=== PATIENT | female | born 1975 | race American Indian/Alaskan Native ===

== ENCOUNTER → 2019-04-16 | Emergency (ER) | payer SELFPAY ==
[~2019-04-16] MED LIST: ACETAMINOPHEN 325 MG TAB PO PRN; ALBUTEROL 2.5 MG/3 ML NEBU IH PRN; CALCIUM CHLORIDE 1,000 MG/10 ML SYRINGE IV ONE; CEFEPIME/NS 2 GM/100 ML 2 GM/100 ML BAG IV SCH; EPINEPHrine 1:10,000 1 MG/10 ML SYRINGE ONE; FUROSEMIDE 40 MG/4 ML INJ IV SCH; HEPARIN 5,000 UNIT/1 ML VIAL SUB-Q SCH; HYDROmorphone 1 MG/1 ML INJ IV PRN; IPRATROPIUM/ALBUTEROL SULFATE 3 ML AMPUL.NEB IH PRN; IPRATROPIUM/ALBUTEROL SULFATE 3 ML AMPUL.NEB IH SCH; LIP THERAPY VASELINE TP PRN; LORazepam 2 MG/ML VIAL IV ONE; MINERAL OIL/PETROLATUM, WHITE OPHTH OINT 3.5 GM OU PRN; MORPHINE 2 MG/1 ML INJ IV PRN; ONDANSETRON 4 MG/2 ML INJ IV PRN; POTASSIUM CHLORIDE ER 20 MEQ TAB PO SCH; SODIUM BICARB 8.4% 50 MEQ/50 ML SYRINGE IV ONE; VANCOMYCIN 1,000 MG in SODIUM CHLORIDE 0.9% 500 ML 500 ML IV ONE; VANCOMYCIN 1,500 MG in SODIUM CHLORIDE 0.9% 500 ML 500 ML IV SCH; VANCOMYCIN 2,000 MG in SODIUM CHLORIDE 0.9% 500 ML 500 ML IV ONE; VANCOMYCIN PHARMACY TO DOSE IV SCH; carvediloL 6.25 MG TAB PO SCH; hydrALAZINE 25 MG TAB PO SCH
--- NOTE | 2019-04-16 16:30 | Emergency Department Report ---
ED Shortness of Breath HPI - General Stated Complaint: CARDIAC ARREST Time Seen by Provider: 04/16/19 15:14 Source: EMS Limitations: Other (unresponsive patient) - History of Present Illness Initial Comments: Mrs. Wynne is a 43 yo female with hx of CHF, HTN and DM who presents to ED in cardiac arrest. EMS was called for severe shortness of breath. She was found in her car at work. While en route, Patient went into cardiac arrest with PEA. EMS intubated the patient in the ambulance. Epinephrine given down ETT. Patient did not have a pulse on arrival. Chest compressions were performed during transport to treatment room. MD Complaint: shortness of breath -: Sudden, This afternoon Severity: severe Improves With: other (unknown) Worsens With: other (unknown) Known History Of: congestive heart failure Context: other (unknown) Associated Symptoms: other (unknown) - Related Data Home Medications Medication Instructions Recorded Confirmed Last Taken Aspirin EC [Halfprin EC] 81 mg PO QDAY 04/16/19 04/16/19 Unknown Furosemide [Lasix TAB] 40 mg PO QDAY 04/16/19 04/16/19 Unknown ISOSORBIDE MONOnitrate [Imdur ER] 30 mg PO DAILY 04/16/19 04/16/19 Unknown carvediloL [Coreg] 6.25 mg PO BID 04/16/19 04/16/19 Unknown hydrALAZINE [Apresoline] 50 mg PO BID 04/16/19 04/16/19 Unknown Allergies Allergy/AdvReac Type Severity Reaction Status Date / Time No Known Allergies Allergy Unverified 04/16/19 17:37 ED Review of Systems ROS: Stated complaint: CARDIAC ARREST Other details as noted in HPI Comment: Unobtainable due to pts medical conditions (patient is unresponsive) ED Past Medical Hx - Past Medical History Previous Medical History?: Yes Hx Hypertension: Yes Hx Congestive Heart Failure: Yes Hx Diabetes: Yes - Surgical History Additional Surgical History: unable to obtain - Family History Family history: other (unknown) - Social History Smoking Status: Current Every Day Smoker Substance Use Type: Other (unknown) - Medications Home Medications: Home Medications Medication Instructions Recorded Confirmed Last Taken Type Aspirin EC [Halfprin EC] 81 mg PO QDAY 04/16/19 04/16/19 Unknown History Furosemide [Lasix TAB] 40 mg PO QDAY 04/16/19 04/16/19 Unknown History ISOSORBIDE MONOnitrate [Imdur ER] 30 mg PO DAILY 04/16/19 04/16/19 Unknown History carvediloL [Coreg] 6.25 mg PO BID 04/16/19 04/16/19 Unknown History hydrALAZINE [Apresoline] 50 mg PO BID 04/16/19 04/16/19 Unknown History ED Physical Exam - General Limitations: Other (unresponsive) General appearance: obtunded - Head Head exam: Present: atraumatic, normocephalic - Eye Eye exam: Present: other (pinpoint unreactive pupils) - ENT ENT exam: Present: other (pale moist mucous membranes) - Neck Neck exam: Present: normal inspection - Respiratory Respiratory exam: Present: wheezes, rales, rhonchi, other (equal coarse breath sounds) - Cardiovascular Cardiovascular Exam: Present: normal rhythm, tachycardia, normal heart sounds. Absent: systolic murmur, diastolic murmur - GI/Abdominal GI/Abdominal exam: Present: soft - Extremities Exam Extremities exam: Present: normal inspection - Neurological Exam Neurological exam: Present: other (unresponsive) - Psychiatric Psychiatric exam: Present: other (unresponsive) - Skin Skin exam: Present: intact, pallor ED Course Vital Signs 04/16/19 04/16/19 04/16/19 15:57 16:52 17:00 Pulse Rate 123 H 110 H 113 H Respiratory 17 23 Rate Blood Pressure 267/145 202/125 O2 Sat by Pulse 100 100 Oximetry 04/16/19 04/16/19 04/16/19 17:16 17:30 17:39 Pulse Rate 112 H 114 H 104 H Respiratory 27 H 22 Rate Blood Pressure 225/139 212/130 201/105 O2 Sat by Pulse 100 100 Oximetry 04/16/19 04/16/19 04/16/19 17:46 18:00 18:16 Pulse Rate 104 H 104 H 108 H Respiratory 16 21 21 Rate Blood Pressure 199/115 199/116 202/113 O2 Sat by Pulse 100 100 100 Oximetry 04/16/19 04/16/19 04/16/19 18:30 18:46 19:00 Pulse Rate 108 H 108 H 108 H Respiratory 16 14 18 Rate Blood Pressure 192/114 201/113 194/113 O2 Sat by Pulse 100 100 100 Oximetry 04/16/19 04/16/19 04/16/19 19:06 19:08 19:16 Pulse Rate 127 H 107 H 101 H Respiratory 22 Rate Blood Pressure 172/111 187/115 158/86 O2 Sat by Pulse 100 94 Oximetry 04/16/19 04/16/19 04/16/19 19:30 19:46 20:00 Pulse Rate 99 H 99 H 99 H Respiratory 19 16 16 Rate Blood Pressure 171/96 168/95 171/101 O2 Sat by Pulse 94 94 96 Oximetry 04/16/19 04/16/19 04/16/19 20:16 20:30 20:45 Pulse Rate 99 H 99 H 101 H Respiratory 18 17 19 Rate Blood Pressure 176/101 175/100 176/110 O2 Sat by Pulse 97 98 98 Oximetry 04/16/19 04/16/19 04/16/19 21:01 21:15 21:31 Pulse Rate 102 H 102 H 102 H Respiratory 21 26 H 16 Rate Blood Pressure 183/92 185/103 183/97 O2 Sat by Pulse 98 99 99 Oximetry - Central Line Placement Right IJ Consent Obtained: emergent situation Time Out Performed: No Patient Placed on Monitor/Pulse Ox: Yes MD Prep: mask, gown, gloves, other (drape cap) Central Line Prep: Chlorhexidine scrub Ultrasound Used for Placement: Yes Central Line Lumen Inserted: triple Bloods Obtained for Lab: Yes Central Line Position: good blood return, all ports aspirated, flus, sutured in place with nyl Dressing Applied: Tegaderm Post Procedure X-Ray: tip of catheter in good p Patient Tolerated Procedure: well Complications: none - IO Right Tibia Consent Obtained: emergent situation Time Out Performed: No IO Instrument Used to Penetrate the Cortex: battery powered IO drill Patient Tolerated Procedure: well Complications: none ED Medical Decision Making - Lab Data Result diagrams: 04/16/19 17:00 04/16/19 17:00 Laboratory Results - last 24 hr 04/16/19 04/16/19 04/16/19 16:05 17:00 17:00 WBC 18.5 H RBC 4.00 Hgb 12.9 Hct 37.5 MCV 94 MCH 32 MCHC 34 RDW 14.8 Plt Count 193 Lymph % (Auto) 4.3 L [place] % (Auto) 6.4 Eos % (Auto) 0.3 Baso % (Auto) 0.3 Lymph # 0.8 L [place] # 1.2 H Eos # 0.1 Baso # 0.1 Seg Neutrophils % 88.7 H Seg Neutrophils # 16.4 H PT INR APTT ABG pH 7.238 L ABG pCO2 57.3 ABG pO2 206.3 H ABG HCO3 23.9 ABG O2 Saturation 99.2 H ABG O2 Content 24.3 ABG Base Excess -4.7 L ABG Hemoglobin 17.7 H ABG Carboxyhemoglobin 2.2 ABG Methemoglobin 0.7 Oxyhemoglobin 96.2 FiO2 100 Sodium 129 L Potassium 4.4 Chloride 91.2 L Carbon Dioxide 25 Anion Gap 17 BUN 13 Creatinine 1.2 Estimated GFR 49 BUN/Creatinine Ratio 11 Glucose 386 H Calcium 8.5 Total Bilirubin 0.40 AST 123 H ALT 91 H Alkaline Phosphatase 135 H Total Protein 6.2 L Albumin 3.0 L Albumin/Globulin Ratio 0.9 04/16/19 17:00 WBC RBC Hgb Hct MCV MCH MCHC RDW Plt Count Lymph % (Auto) [place] % (Auto) Eos % (Auto) Baso % (Auto) Lymph # [place] # Eos # Baso # Seg Neutrophils % Seg Neutrophils # PT 14.7 INR 1.13 APTT 28.8 ABG pH ABG pCO2 ABG pO2 ABG HCO3 ABG O2 Saturation ABG O2 Content ABG Base Excess ABG Hemoglobin ABG Carboxyhemoglobin ABG Methemoglobin Oxyhemoglobin FiO2 Sodium Potassium Chloride Carbon Dioxide Anion Gap BUN Creatinine Estimated GFR BUN/Creatinine Ratio Glucose Calcium Total Bilirubin AST ALT Alkaline Phosphatase Total Protein Albumin Albumin/Globulin Ratio - EKG Data 04/16/19 16:34 EKG obtained 1451 sinus tachycardia 110 bpm leftward axis RBBB ST depression anterolateral leads no ST elevation - Radiology Data Radiology results: report reviewed cta: consolidation with diffuse congestion - Medical Decision Making Mrs. Wynne has hx of HTN, DM, CHF according to EMS report. We continued ACLS PEA algorithm with medication provided through rapid IO. After approximately 5 minutes of resuscitation, ROSC achieved. CVL R IJ placed. Family members arrived later during the course of her care. She is a smoker. 2 months ago dx'd with CHF at [facility]. Did not follow up with physician. Earlier this week she had a cough. Son stated that she felt hot during her episode of shortness of breath. Currently, Mrs. Wynne has repetitive eye opening without movement of extremities. She does not follow commands. With hyponatremia leukocytosis, pneumonia suspected as well as CHF. Initially normotensive after ROSC, 30 minutes after severe hypertension 260-280 mm Hg, developed suspect result of epinephrine. Stat head CT ordered to r/o ICH. CT head without acute findings. Due to family choice, Patient was transferred to [facility] Accepting cigarette stamper Dr. Abdul Critical Care Time: Yes Critical care attestation.: If time is entered above; I have spent that time in minutes in the direct care of this critically ill patient, excluding procedure time. 40 minutes of critical care time excluding procedures were used in the care of this critically ill patient. I was at the bedside directing resuscitation. Patient required multiple assessments. Concern for impending cardiac arrest, shock, [place], ICH. ED Disposition Clinical Impression: Cardiopulmonary arrest, Acute CHF, HCAP (healthcare-associated pneumonia) Disposition: [id number]/TX-[id number] ANOTHER TYPE HLTHCARE Is pt being admited?: No Does the pt Need Aspirin: No Condition: Stable
--- NOTE | 2019-04-16 16:35 | XRay Report ---
CHEST 1 VIEW 04/16/2019 3:20 PM INDICATION / CLINICAL INFORMATION: ETT placement. COMPARISON: None available. FINDINGS: SUPPORT DEVICES: Endotracheal tube has been placed with the tip 4.5 cm above the jeffy. Right jugula r line has been placed with the tip projecting over the superior vena cava. HEART / MEDIASTINUM: Heart is upper normal size. LUNGS / PLEURA: Mild bibasilar pulmonary opacities. No significant pleural effusion. No pneumothorax. ADDITIONAL FINDINGS: No significant additional findings. IMPRESSION: 1. Endotracheal tube and right jugular line in expected position. Signer Name: Snow Vargas MD Signed: 04/16/2019 4:31 PM Workstation Name: [id number]
--- NOTE | 2019-04-16 17:03 | Cat Scan Report ---
CT BRAIN: Head CT 04/16/2019 INDICATION / CLINICAL INFORMATION: cardiac arrest hypertensive. Involuntary body movement patient scanned twice for better images, best images possible with this patient COMPARISON: None available. FINDINGS: BRAIN/INTRACRANIAL STRUCTURES: Unenhanced CT images of the brain were obtained. Patient motion artifact is present on these images. There is no gross evidence of acute abnormality. Ventricles and sulci are normal in size and shape. There is no evidence of acute ischemic injury, hemorrhage, or mass. There are no abnormal extra-axial fluid collections. Incidental note is made of right maxillary sinus opacification. EXTRACRANIAL STRUCTURES: Unremarkable. IMPRESSION: No acute abnormality. Motion artifact limits resolution. All CT scans at this location are performed using dose reduction to ALARA by means of automated expos ure control. Signer Name: Amrik Pope MD Signed: 04/16/2019 4:59 PM Workstation Name: [id number]
[2019-04-16 17:18] LABS: ABG Base Excess -4.7 mmol/L (-2.0-3.0); ABG HCO3 23.9 mmol/L (20.0-26.0); ABG Methemoglobin 0.7 % (0.0-1.5); ABG Oxygen Saturation 99.2 % (95.0-99.0); ABG PCO2 57.3 mm Hg; ABG PH 7.238 pH Units (7.350-7.450); ABG PO2 206.3 mm Hg (80.0-90.0)
--- NOTE | 2019-04-16 17:26 | Cat Scan Report ---
CTA CHEST WITH CONTRAST INDICATION / CLINICAL INFORMATION: severe shortness of breath cardiac arrest. TECHNIQUE: Axial CT images were obtained through the chest after injection of 100 mL of Omnipaque 350 IV contras t. 3 plane MIP and/or 3D reconstructions were produced. All CT scans at this location are performed u sing CT dose reduction for LARARA by means of automated exposure control. COMPARISON: None available. FINDINGS: PULMONARY ARTERIES: No pulmonary emboli. THORACIC AORTA: No significant abnormality. HEART: Heart is enlarged. There is reflux of contrast from the right atrium into the IVC and hepatic veins. CORONARY ARTERIES: No significant calcification. MEDIASTINUM / ERASMO: No significant abnormality. PLEURA: No pleural effusion. No pneumothorax. LUNGS: Moderately extensive bilateral airspace and interstitial pulmonary edema. Consolidation of the superior segment of the left lower lobe. ADDITIONAL FINDINGS: None. UPPER ABDOMEN: No acute findings. SKELETAL STRUCTURES: No significant osseous abnormality. IMPRESSION: 1. No CT evidence for pulmonary embolism. 2. Cardiomegaly with extensive bilateral airspace and interstitial pulmonary edema. 3. Consolidation of the superior segment of the left lower lobe. Signer Name: Snow Vargas MD Signed: 04/16/2019 5:22 PM Workstation Name: [id number]
--- NOTE | 2019-04-16 17:43 | Cat Scan Report ---
CT ABDOMEN AND PELVIS WITH CONTRAST INDICATION: Cardiac arrest. Severe shortness of breath. COMPARISON: No relevant prior imaging study available. TECHNIQUE: Axial, coronal and sagittal CT imaging of the abdomen and pelvis was performed after inje ction of 100 MLO Omnipaque [address] scans at this location are performed using CT dose r eduction for ALARA by means of automated exposure control. FINDINGS: LOWER CHEST: Dense airspace opacities throughout the lung bases are seen with mild cardiomegaly. No a dditional significant abnormality. LIVER: The liver is enlarged and measures 19 cm in length. There is periportal edema. No additional s ignificant abnormality. BILIARY: Our cholecystectomy. No biliary ductal dilatation. PANCREAS: No significant abnormality. SPLEEN: No significant abnormality. ADRENALS: No significant abnormality. KIDNEYS AND URETERS: No significant abnormality. GI TRACT: No significant abnormality of the stomach, small bowel or colon. Unremarkable appendix. PERITONEUM: No free fluid. No free air. No fluid collection. LYMPH NODES: No significant adenopathy. VASCULATURE: The aorta is patent and normal in caliber with mild aortoiliac atherosclerosis. The visu alized branches of the aorta are patent. URINARY BLADDER: Collapsed without a distinct abnormality. REPRODUCTIVE ORGANS: No significant abnormality. ADDITIONAL FINDINGS: None. SKELETAL SYSTEM: No significant abnormality. IMPRESSION: 1. Bibasilar opacities likely represent pulmonary edema given the history of cardiac arrest. 2. Periportal edema is also occluded related to the patient's reported cardiac arrest. 3. No other acute abnormality of the abdomen or pelvis. Signer Name: Austin Obregon MD Signed: 04/16/2019 5:38 PM Workstation Name: [email or web address]
[2019-04-16 17:45] LABS: Basophils # (Auto) 0.1 K/mm3 (0.0-0.1); Basophils % (Auto) 0.3 % (0.0-1.8); Eosinophils # (Auto) 0.1 K/mm3 (0.0-0.4); Eosinophils % (Auto) 0.3 % (0.0-4.3); Hematocrit 37.5 % (30.3-42.9); Hemoglobin 12.9 gm/dl (10.1-14.3); Lymphocytes # (Auto) 0.8 K/mm3 (1.2-5.4); Lymphocytes % (Auto) 4.3 % (13.4-35.0); Mean Corpuscular HGB Conc 34 % (30-34); Mean Corpuscular Volume 94 fl (79-97); Monocytes # (Auto) 1.2 K/mm3 (0.0-0.8); Monocytes % (Auto) 6.4 % (0.0-7.3); Platelet Count 193 K/mm3 (140-440); Red Cell Distribution Width 14.8 % (13.2-15.2)
[2019-04-16 18:01] LABS: INR 1.13 (0.87-1.13)
[2019-04-16 18:06] LABS: Partial Thromboplastin Time 28.8 Sec. (24.2-36.6)
[2019-04-16 18:07] LABS: Calcium 8.5 mg/dL (8.4-10.2)
[2019-04-16 19:03] LABS: Chol/HDL Ratio 2.1 %
[2019-04-16 20:17] LABS: Bacteria,Urine 1+ /HPF (Negative); Bilirubin,Urine NEG (Negative); Blood,Urine LG (Negative); Color,Urine Yellow (Yellow); Protein,Urine >500 mg/dL (Negative); RBC,Urine > 182.0 /HPF (0.0-6.0); Sperm,Urine FEW /HPF (NP); Urobilinogen,Urine < 2.0 mg/dL (<2.0)
[2019-04-16 20:25] LABS: Amphetamine Screen,Urine PRESUMPTIVE NEGATIVE; Benzodiazepines Screen,Urine PRESUMPTIVE NEGATIVE; Cannabinoid Screen,Urine PRESUMPTIVE NEGATIVE; Cocaine Screen,Urine PRESUMPTIVE NEGATIVE; Methadone Screen,Urine PRESUMPTIVE NEGATIVE; Opiate Screen,Urine PRESUMPTIVE NEGATIVE
[2019-04-16 22:43] VITALS: BP 150/87
== END | disposition other institution (70) ==
LOC: EDBD → ED 14:41
DX: I46.9 Cardiac arrest, cause unspecified (principal); I11.0 Hypertensive heart disease with heart failure; I50.9 Heart failure, unspecified; J18.9 Pneumonia, unspecified organism; E11.9 Type 2 diabetes mellitus without complications; F17.200 Nicotine dependence, unspecified, uncomplicated; Z79.899 Other long term (current) drug therapy
CPT/HCPCS: 36415; 36556; 36680; 51702; 70450; 71045; 71275; 74177; 80053; 80061; 80307; 81001; 82803; 83036; 84484; 85025; 85379; 85610; 85730; 87040; 87070; 87086; 87205; 93005; 93010; 96365; 96368; 96375; 96376; 99291; J0171; J0692; J2060; J3370; J7040; Q9967; 94002